=== PATIENT | male | born 1975 | race Caucasian/White ===

== ENCOUNTER 2016-11-13 12:56 | Emergency (ER) | payer BC, OTHER ==
--- NOTE | 2016-11-13 13:28 | ED ---
Fall HPI - General Chief Complaint: Fall Stated Complaint: Fall. R shoulder injury Time Seen by Provider: 11/13/16 13:12 Source: patient, RN notes reviewed Mode of arrival: ambulatory - History of Present Illness Initial Comments: 41-year-old male presents to the emergency Department chief complaint of fall. Patient states that he was up on the ladder about 5 steps up and he fell landing onto his right wrist forearm and shoulder. He states his little bit of neck pain to the right side as well as some right hip pain. Patient states he did not hit his head he did not pass out there is no lightheadedness or dizziness before the fall. Patient states her touch tender to movement. Patient states shooting pain down the arm as well. Patient states also having some low back pain since the fall. Patient has a loss of bowel or bladder function or any saddle anesthesia. Patient states she was concerned due to the continued pain so he thought that he should be evaluated. Patient denies any other injuries from the incident. Patient denies any recent fever, chills, shortness of breath, chest pain, abdominal pain, nausea vomiting, numbness or tingling, dysuria or hematuria, constipation or diarrhea, headaches or visual changes, or any other current symptoms. - Related Data Home Medications Medication Instructions Recorded Confirmed No Known Home Medications [No 11/13/16 11/13/16 Known Home Medications] Allergies Allergy/AdvReac Type Severity Reaction Status Date / Time No Known Allergies Allergy Verified 11/13/16 13:52 Review of Systems ROS Statement: Those systems with pertinent positive or pertinent negative responses have been documented in the HPI. ROS Other: All systems not noted in ROS Statement are negative. Past Medical History Past Medical History: No Reported History History of Any Multi-Drug Resistant Organisms: None Reported Past Surgical History: No Surgical Hx Reported Past Psychological History: No Psychological Hx Reported Smoking Status: Never smoker Past Alcohol Use History: None Reported Past Drug Use History: None Reported General Exam - General Exam Comments Initial Comments: General: The patient is awake and alert, in no distress, and does not appear acutely ill. Eye: Pupils are equal, round. Ears, nose, mouth and throat: There are moist mucous membranes. Neck: The neck is supple, there is no tenderness the patient on the right paracervical spine. There is tenderness over the greater trapezius on the right as well. Cardiovascular: There is a regular rate and rhythm. No murmur, rub or gallop is appreciated. Respiratory: Lungs are clear to auscultation, respirations are non-labored, breath sounds are equal. No wheezes, stridor, rales, or rhonchi. Gastrointestinal: Soft, non-distended, non-tender abdomen without masses or organomegaly noted. There is no rebound or guarding present. No CVA tenderness. Bowel sounds are unremarkable. She does appear to have skin abrasion to the right lateral hip. Back: There is minimal tenderness to palpation in the midline through the lumbar spine.. There is no obvious deformity. No rashes noted. Musculoskeletal: Normal ROM, she has tenderness with patient over the right shoulder the right elbow and the right wrist. Mild tenderness with patient along the right lateral hip as well. There is no pedal edema. There is no calf tenderness or swelling. Sensation intact. Pulses equal bilaterally 2+. Neurological: CN II-XII intact, There are no obvious motor or sensory deficits. Coordination appears grossly intact. Speech is normal. Skin: Skin is warm and dry and no rashes or lesions are noted. Psychiatric: Cooperative, appropriate mood & affect, normal judgment. Limitations: no limitations Course Vital Signs 11/13/16 12:58 Temperature 97.8 F Pulse Rate 78 Respiratory 20 Rate Blood Pressure 110/67 O2 Sat by Pulse 99 Oximetry Medical Decision Making - Medical Decision Making 41 male presents emergency apartment with chief complaint of fall. Patient x- rays and CAT scans are reviewed and negative. The olecranon spell that they do see patient is not tender over this area. We discussed continued follow-up for this. Moving discussed Motrin Tylenol and ice. We discussed return parameters all the patient's questions. He stated that he understood reasons. The plan. This time patient does feel comfortable with discharged home. - Radiology Data Radiology results: report reviewed, image reviewed Disposition Clinical Impression: Fall, Sprain of right shoulder, Right wrist sprain, Cervical strain, Abrasion of hip, right, Contusion of elbow, right Disposition: HOME SELF-CARE Condition: Stable Instructions: Abrasion (ED), Contusion in Adults (ED) Additional Instructions: Please use medication as discussed. Please follow up with family doctor if symptoms have not improved over the next two days. Please return to the emergency room if your symptoms increase or worsen or for any other concerns. Referrals: Clinton Asencio MD [Primary Care Provider] - 1-2 days Time of Disposition: 15:22
--- NOTE | 2016-11-13 14:39 | CT ---
EXAMINATION TYPE: CT cervical spine wo con DATE OF EXAM: 11/13/2016 2:31 PM COMPARISON: NONE HISTORY: Fall from ladder CT DLP: 736 mGycm Automated exposure control for dose reduction was used. TECHNIQUE: CT scan of the cervical spine is obtained without contrast, axial images are obtained, sa gittal and coronal reformatted images are also reviewed. FINDINGS: Disc heights are preserved. Vertebral body heights are preserved. No focal disc herniation is evident. Prevertebral space appears unremarkable. No spinal canal stenosis or neural foraminal shelby nosis is present. IMPRESSIONS: 1. No acute osseous abnormality.
--- NOTE | 2016-11-13 14:59 | XR ---
EXAMINATION TYPE: XR shoulder complete RT DATE OF EXAM: 11/13/2016 2:45 PM CLINICAL HISTORY: Fall injury with pain. TECHNIQUE: Three views of the right shoulder are obtained. COMPARISON: None. FINDINGS: There is no acute fracture/dislocation evident in the right shoulder. The acromioclavicul ar and glenohumeral joint spaces appear within normal limits. The visualized ribs are intact and unr emarkable. IMPRESSION: There is no acute fracture or dislocation in the right shoulder.
--- NOTE | 2016-11-13 15:06 | XR ---
EXAMINATION TYPE: XR pelvis AP view DATE OF EXAM: 11/13/2016 2:45 PM CLINICAL HISTORY: Pelvic pain after fall injury. TECHNIQUE: A single AP view of the pelvis is obtained. COMPARISON: None. FINDINGS: There is no acute fracture/dislocation evident in the pelvis. The hip and sacroiliac join ts appear symmetric and unremarkable. Surgical clips overlie superior right sacroiliac joint. IMPRESSION: There is no acute fracture or dislocation in the pelvis.
--- NOTE | 2016-11-13 15:07 | XR ---
EXAMINATION TYPE: XR wrist complete RT DATE OF EXAM: 11/13/2016 2:45 PM CLINICAL HISTORY: Wrist pain after fall injury. TECHNIQUE: Frontal, lateral , scaphoid, and oblique images of the right wrist are obtained. COMPARISON: None FINDINGS: There is no acute fracture/dislocation evident in the right wrist. The joint spaces in th e right wrist appear within normal limits. The overlying soft tissue appears unremarkable. IMPRESSION: There is no acute fracture or dislocation in the right wrist.
--- NOTE | 2016-11-13 15:10 | XR ---
EXAMINATION TYPE: XR lumbar spine 2 or 3V DATE OF EXAM: 11/13/2016 2:45 PM COMPARISON: NONE HISTORY: Pain TECHNIQUE: 3 view lumbar spine FINDINGS: There 5 lumbar-type vertebral bodies. The pedicles are intact. Disc heights are preserved. Vertebral body heights are preserved. Alignment is straightened. IMPRESSION: 1. Normal three-view lumbar spine
--- NOTE | 2016-11-13 15:11 | XR ---
EXAMINATION TYPE: XR elbow complete RT DATE OF EXAM: 11/13/2016 2:45 PM COMPARISON: NONE HISTORY: Pain, fall from ladder TECHNIQUE: 3 view right elbow FINDINGS: Anterior fat pad is normal. Radial head aligns normally with the humerus. Olecranon spur is present. No acute fractures are evident. IMPRESSION: 1. No acute osseous abnormality right elbow. Note is made of a spur at the olecranon. 2. Follow-up exam can be performed 710 days from acute trauma for continued pain.
[2016-11-13 15:28] VITALS: BP 131/81; PULSE 81; RESP 18; TEMP 97.1
== END 2016-11-13 15:28 | disposition home or self-care (01) ==
LOC: EC 12:56
DX: S43.401A Unspecified sprain of right shoulder joint, initial encounter (principal); S16.1XXA Strain of muscle, fascia and tendon at neck level, initial encounter; S63.501A Unspecified sprain of right wrist, initial encounter; S70.211A Abrasion, right hip, initial encounter; S50.01XA Contusion of right elbow, initial encounter; W11.XXXA Fall on and from ladder, initial encounter
CPT/HCPCS: 72100; 72125; 72170; 99284

== ENCOUNTER 2019-09-10 15:23 | Emergency (ER) | payer OTHER ==
[2019-09-10] MEDS ORDERED: MORPHINE SULFATE 4 MG/ML SYRINGE IVP STA (16:47)
[2019-09-10] MEDS ORDERED: ONDANSETRON 4 MG/2 ML VIAL IVP STA (16:47)
--- NOTE | 2019-09-10 16:54 | ED ---
Fall HPI - General Chief Complaint: Fall Stated Complaint: fall from 10ft ladder Time Seen by Provider: 09/10/19 15:25 Source: patient, family Mode of arrival: ambulatory - History of Present Illness Initial Comments: The patient is a 44 year old male with no past medical history who presents to emergency room in with reported fall. He reports that he was on a ladder when he fell from a height of 10 feet straight onto his tailbone. He denies any blunt head trauma or loss of consciousness. No syncopal episode. States that he had significant pain in his lumbar spine and coccyx region. He needed assistance to stand. States he was able to weight-bear on his lower extremities. Denies any weakness in his lower extremity. No saddle anesthesia. No incontinence of bowel or bladder. Denies any paresthesias or paralysis. Did not take anything for pain. Was brought into the emergency room and by private vehicle. Denies any nausea or vomiting. No chest pain or shortness of breath. Denies abdominal pain. No pain in his upper extremities or neck. There are no alleviating, precipitating or modifying factors - Related Data Previous Rx's Medication Instructions Recorded HYDROcodone/APAP 7.5-325MG [[place] 1 tab PO Q4HR PRN 3 Days #18 tab 09/10/19 7.5-325] Allergies Allergy/AdvReac Type Severity Reaction Status Date / Time No Known Allergies Allergy Verified 11/13/16 13:52 Review of Systems ROS Statement: Those systems with pertinent positive or pertinent negative responses have been documented in the HPI. ROS Other: All systems not noted in ROS Statement are negative. Past Medical History Past Medical History: No Reported History History of Any Multi-Drug Resistant Organisms: None Reported Past Surgical History: No Surgical Hx Reported Past Psychological History: No Psychological Hx Reported Smoking Status: Never smoker Past Alcohol Use History: None Reported Past Drug Use History: None Reported General Exam Limitations: no limitations General appearance: alert, in no apparent distress Head exam: Present: atraumatic, normocephalic, normal inspection Eye exam: Present: normal appearance, PERRL, EOMI. Absent: scleral icterus, conjunctival injection, periorbital swelling ENT exam: Present: normal exam, mucous membranes moist Neck exam: Present: normal inspection. Absent: tenderness, meningismus, lymphadenopathy Respiratory exam: Present: normal lung sounds bilaterally. Absent: respiratory distress, wheezes, rales, rhonchi, stridor Cardiovascular Exam: Present: regular rate, normal rhythm, normal heart sounds. Absent: systolic murmur, diastolic murmur, rubs, gallop, clicks GI/Abdominal exam: Present: soft, normal bowel sounds. Absent: distended, tenderness, guarding, rebound, rigid Extremities exam: Present: normal inspection, full ROM, normal capillary refill. Absent: tenderness, pedal edema, joint swelling, calf tenderness Back exam: Present: tenderness, vertebral tenderness (T10-L2) Neurological exam: Present: alert, oriented X3, CN II-XII intact Psychiatric exam: Present: normal affect, normal mood Skin exam: Present: warm, dry, intact, normal color. Absent: rash Course Vital Signs 09/10/19 09/10/19 09/10/19 15:25 15:28 16:28 Temperature 97.6 F Pulse Rate 83 79 82 Respiratory 19 16 16 Rate Blood Pressure 141/77 132/78 138/80 O2 Sat by Pulse 100 98 98 Oximetry 09/10/19 09/10/19 09/10/19 17:00 18:00 19:55 Temperature 98 F Pulse Rate 78 100 99 Respiratory 20 20 18 Rate Blood Pressure 110/66 106/64 126/82 O2 Sat by Pulse 98 98 96 Oximetry Medical Decision Making - Medical Decision Making Upon arrival the patient was placed into room 11. A thorough history and physical exam was performed. Peripheral IV was established. The patient was given 4 mg morphine for pain control and sent for a CT of his lumbar spine without contrast. Imaging does demonstrate an acute compression fracture of superior endplate of T12. Estimated 5% with an Anterior 12 Mm Chip Fragment. The Patient Does Continue to Have Significant Pain and Therefore He Did Provide Him with a Dose of Dilaudid 1 Mg. I Called and Discussed the Case with Dr. Singh who states the patient can be discharged home if there are no neurologic symptoms and the patient's pain is controlled. I do reevaluated him and he is able to ambulatory around his exam room without difficulty. I do recommend he follow up with orthospine. He is given follow-up information for Dr. Jones's office. I will provide the patient with a prescription for [place]. He does sign and opioids start talking form. The patient is also given a prescription for a TLSO brace. If the patient has any new or worsening symptoms she should return to the emergency room. Strict return parameters were discus sed. The patient was then discharged home ambulatory in stable condition Disposition Clinical Impression: Compression fracture, Fall Disposition: HOME SELF-CARE Condition: Stable Instructions (If sedation given, give patient instructions): Vertebral Compression Fracture (ED) Additional Instructions: Please follow up with the primary care doctor in 2-4 days. Return to the emergency room for any new or worsening symptoms. Please also call and follow up with Dr. Murdock Prescriptions: HYDROcodone/APAP 7.5-325MG [[place] 7.5-325] 1 tab PO Q4HR PRN 3 Days #18 tab PRN Reason: Pain Is patient prescribed a controlled substance at d/c from ED?: Yes When asked, does pt state using other controlled substances?: No If prescribed controlled substance>3 days was MAPS reviewed?: Prescribed <3 Days If opioid is for acute pain is fill amount 7 days or less?: Yes If Rx opioid, was Start Talking consent form obtained?: Yes Referrals: None,Stated [Primary Care Provider] - 1-2 days Patrica Murdock, [Doctor of Osteopathic Medicine] - 1-2 days Time of Disposition: 19:49
[2019-09-10] MEDS ORDERED: HYDROmorphone 1 MG/ML 1 ML SYRINGE IVP STA ×2 (17:51→19:45)
--- NOTE | 2019-09-10 17:52 | CT ---
EXAMINATION TYPE: CT lumbar spine wo con DATE OF EXAM: 09/10/2019 COMPARISON: None HISTORY: Fall from 10 feet. Low back pain CT DLP: 1203.6 mGycm Automated exposure control for dose reduction was used. Multiple axial sections were obtained from the level of T12-S3 vertebra without contrast. Vertebra have normal alignment. Disc spaces are fairly normal. There is a minimal compression fractur e of the superior endplate of T12. There is depression 5%. There is a anterior 12 mm chip fracture. The posterior elements are intact. There is no paraspinal mass. Sacroiliac joints appear normal. The re is mild posterior disc bulging at L4-5. There is a mild relative spinal stenosis at L4-5 due to th e disc bulging and mild ligament thickening. IMPRESSION: There is at an acute mild compression fracture of superior endplate of T12. No evidence of burst frac ture. Small posterior disc herniation at L4-5.
[2019-09-10 19:55] VITALS: BP 126/82; PULSE 99; RESP 18; TEMP 98
== END 2019-09-10 20:13 | disposition home or self-care (01) ==
LOC: EC 15:23
DX: S22.080A Wedge compression fracture of T11-T12 vertebra, initial encounter for closed fracture (principal); M53.3 Sacrococcygeal disorders, not elsewhere classified; W11.XXXA Fall on and from ladder, initial encounter
CPT/HCPCS: 99284; 96374; 96375 ×2; 96376; 72131; J2270; J2405; J1170

== ENCOUNTER 2022-01-07 06:37 | Emergency (ER) | payer OTHER ==
[2022-01-07 06:43] VITALS: TEMP 98
[2022-01-07] MEDS ORDERED: HYDROmorphone 1 MG/ML 1 ML SYRINGE IM STA (06:48)
--- NOTE | 2022-01-07 07:04 | ED ---
General Adult HPI - General Chief complaint: Chest Pain Stated complaint: RT rib pain Time Seen by Provider: 01/07/22 06:44 Source: patient, RN notes reviewed Mode of arrival: ambulatory Limitations: no limitations - History of Present Illness Initial comments: This a 46-year-old male presents to the emergency Department with chief complaint of right-sided rib pain. Patient states she's on roof states that he fell through the roof states he landed his chest on the truss catch himself. He states he did not fall all way through the roof he states his happened 2 days ago his been having increasing rib pain stated increasing pain with deep breath cough, twist and bend. No abdominal pain no head neck pain no back pain - Related Data Previous Rx's Medication Instructions Recorded HYDROcodone/APAP 7.5-325MG [[place] 1 tab PO Q4HR PRN 3 Days #18 tab 09/10/19 7.5-325] HYDROcodone/APAP 7.5-325MG [[place] 1 tab PO Q6HR PRN 3 Days #12 tab 01/07/22 7.5-325] Ibuprofen [Motrin] 600 mg PO Q8HR PRN #20 tab 01/07/22 Allergies Allergy/AdvReac Type Severity Reaction Status Date / Time No Known Allergies Allergy Verified 01/07/22 06:43 Review of Systems ROS Statement: Those systems with pertinent positive or pertinent negative responses have been documented in the HPI. ROS Other: All systems not noted in ROS Statement are negative. Past Medical History Past Medical History: No Reported History History of Any Multi-Drug Resistant Organisms: None Reported Past Surgical History: No Surgical Hx Reported Past Psychological History: No Psychological Hx Reported Smoking Status: Never smoker Past Alcohol Use History: None Reported Past Drug Use History: None Reported General Exam Limitations: no limitations General appearance: alert, in no apparent distress Head exam: Present: atraumatic, normocephalic, normal inspection Eye exam: Present: normal appearance, PERRL, EOMI. Absent: scleral icterus, conjunctival injection, periorbital swelling ENT exam: Present: normal exam, normal oropharynx, mucous membranes moist Neck exam: Present: normal inspection, full ROM. Absent: tenderness, meningismus, lymphadenopathy Respiratory exam: Present: normal lung sounds bilaterally, chest wall tenderness (Moderate right anterior rib tenderness). Absent: respiratory distress, wheezes, rales, rhonchi, stridor Cardiovascular Exam: Present: regular rate, normal rhythm, normal heart sounds. Absent: systolic murmur, diastolic murmur, rubs, gallop, clicks GI/Abdominal exam: Present: soft, normal bowel sounds. Absent: distended, tenderness, guarding, rebound, rigid Back exam: Present: full ROM. Absent: tenderness, CVA tenderness (R), CVA tenderness (L), paraspinal tenderness, vertebral tenderness Neurological exam: Present: alert, oriented X3, reflexes normal. Absent: motor sensory deficit Skin exam: Present: warm, dry, intact, normal color. Absent: rash Course Vital Signs 01/07/22 06:40 Temperature 98 F Pulse Rate 66 Respiratory 19 Rate Blood Pressure 127/74 O2 Sat by Pulse 99 Oximetry Medical Decision Making - Medical Decision Making X-rays negative for acute obvious displaced fracture. There may be a subtle nondisplaced fracture identified. He has no pneumothorax. He has no abdominal tenderness. Patient discharged in stable condition return parameters were discussed. Disposition Clinical Impression: Contusion of rib on right side Disposition: HOME SELF-CARE Condition: Stable Instructions (If sedation given, give patient instructions): Rib Contusion (ED) Additional Instructions: Please return to the Emergency Department if symptoms worsen or any other concerns. Prescriptions: Ibuprofen [Motrin] 600 mg PO Q8HR PRN #20 tab PRN Reason: Pain HYDROcodone/APAP 7.5-325MG [[place] 7.5-325] 1 tab PO Q6HR PRN 3 Days #12 tab PRN Reason: Pain Is patient prescribed a controlled substance at d/c from ED?: Yes When asked, does pt state using other controlled substances?: No If prescribed controlled substance>3 days was MAPS reviewed?: Prescribed <3 Days If opioid is for acute pain is fill amount 7 days or less?: Yes If Rx opioid, was Start Talking consent form obtained?: Yes Referrals: Malika Buitrago MD [Primary Care Provider] - 1-2 days Time of Disposition: 07:39
--- NOTE | 2022-01-07 07:35 | XR ---
EXAMINATION TYPE: XR ribs RT w pa chest x-ray DATE OF EXAM: 01/07/2022 COMPARISON: None HISTORY: Pain, fall TECHNIQUE: Right ribs 2 views supplemented with a chest x-ray FINDINGS: Heart size is normal. Pulmonary vasculature is normal. Lungs are clear. No pneumothorax is evident. No displaced rib fractures are present. Follow-up exams can be performed 7-10 days from acute trauma for continued pain. IMPRESSION: 1. No acute displaced rib fractures identified
[2022-01-07] MEDS ORDERED: HYDROcodone/APAP 7.5-325MG 1 EACH TAB PO ONE (07:39)
[2022-01-07] MEDS ORDERED: IBUPROFEN 600 MG TAB PO STA (07:39)
[2022-01-07 08:15] VITALS: BP 107/73; PULSE 63; RESP 16
== END 2022-01-07 08:15 | disposition home or self-care (01) ==
LOC: EC 06:37
DX: S20.211A Contusion of right front wall of thorax, initial encounter (principal); W13.2XXA Fall from, out of or through roof, initial encounter
CPT/HCPCS: 99283; 96372; 99284; 71101; J1170

== ENCOUNTER → 2023-05-20 | Outpatient (CLI) | payer OTHER ==
--- NOTE | 2023-05-20 12:46 | XR ---
EXAMINATION TYPE: XR shoulder complete RT DATE OF EXAM: 05/20/2023 12:42 PM INDICATION: Patient age:Male; 48 years old; Reason for study: [id number] RT SHLD PAIN; COMPARISON: Right shoulder radiograph 11/13/2016 TECHNIQUE: The right shoulder was examined in AP, internally rotated and scapular Y projections. . FINDINGS: No evidence of acute osseous pathology, joint dislocation, or soft tissue swelling. The remaining por tions of the visualized chest are unremarkable. IMPRESSION: No acute osseous pathology.
== END | disposition home or self-care (01) ==
LOC: RADXRYALE 12:03
PROVIDERS: ATTEND Internal Medicine
DX: M25.511 Pain in right shoulder (principal)